=== PATIENT | female | born 1990 | race Caucasian/White ===

== ENCOUNTER 2020-10-11 02:05 | Inpatient (IN) | payer OTHER ==
[2020-10-11] MEDS: Lactated Ringers 1,000 ML IV ONE ×2 (04:30→04:51)
[2020-10-11] MEDS ORDERED: fentaNYL 100 MCG/2 ML SDV IVPUSH PRN (04:30)
[2020-10-11] MEDS ORDERED: Sodium Chloride 0.9% 10 ML Syringe FLUSH PRN (06:26)
--- NOTE | 2020-10-11 06:37 | PCM.LDHP ---
L&D History of Present Illness - General Date of Service: 10/11/20 (admited for early labor) Admit Problem/Dx: Patient Status Order with Admit Dx/Problem 10/11/20 06:26 Patient Status [ADT] Routine Admission Diagnosis/Problem Admission Diagnosis/Problem distress affecting management of mother Source of Information: Patient History Limitations: Reports: No Limitations - History of Present Illness Introduction:: Jennifer had onset of early labor at 2300 last night. She presented to the hospital about 0200. Contraction irregular and baseline heart rate 115. good variability. CE: 2-3/50/-5 per RN. no leaking of fluid. Labs: ABO AB pos HIV neg GBS neg Timing/Duration: Reports: minutes: (2-3) Location, : Reports: Abdomen, Lower back Quality: Reports: Pressure Severity: Moderate Pain Score: 7 Improves with: Reports: None Worsens with: Reports: None - Related Data Allergies/Adverse Reactions: Allergies Allergy/AdvReac Type Severity Reaction Status Date / Time No Known Allergies Allergy Verified 08/31/20 05:57 Home Medications: Home Meds Docusate Sodium [Dok] 1 cap PO DAILY PRN 08/31/20 [History] Pnv No.95/Ferrous Fum/Folic AC [ Vitamins Tablet] 1 tab PO DAILY 08/31/20 [History] Past Medical History HEENT History: Reports: Impaired Vision ACCESS REPRESENTATIVE History: Reports: , Spontaneous : 3 Para: 0 LMP (Approximate): (CALI 10/12/20) Other OB/BYN History: Endocrine/Metabolic History: Reports: Obesity/BMI 30+ - Infectious Disease History Infectious Disease History: Reports: None - Past Surgical History Cardiovascular Surgical History: Reports: None Endocrine Surgical History: Reports: None Neurological Surgical History: Reports: None Other Musculoskeletal Surgeries/Procedures:: knee surgery Social & Family History - Family History Family Medical History: No Pertinent Family History - Tobacco Use Tobacco Use Status *Q: Never Tobacco User Second Hand Smoke Exposure: No - Caffeine Use Caffeine Use: Reports: Coffee Other Caffeine Use: caffeinated water - Recreational Drug Use Recreational Drug Use: No H&P Review of Systems - Review of Systems: Review Of Systems: See Below General: Reports: No Symptoms HEENT: Reports: No Symptoms Pulmonary: Reports: No Symptoms Cardiovascular: Reports: No Symptoms Gastrointestinal: Reports: No Symptoms Genitourinary: Reports: No Symptoms Musculoskeletal: Reports: No Symptoms Skin: Reports: No Symptoms Psychiatric: Reports: No Symptoms Neurological: Reports: No Symptoms Hematologic/Lymphatic: Reports: No Symptoms Immunologic: Reports: No Symptoms L&D Exam - Exam Exam: See Below - Vital Signs Vital Signs: Last Vital Signs Temp 96.7 F L 10/11/20 02:36 Pulse 82 10/11/20 02:36 Resp 18 10/11/20 02:36 BP 139/87 10/11/20 02:36 Pulse Ox 97 10/11/20 02:36 Weight: 200 lb - OB Specific Contraction Duration (sec): 40-60 Contraction Frequency (min): 2-4 Contraction Intensity: Moderate Movement: Active Heart Tones: Present Heart Tones per Min: 105 Heart Rate (FHR) Variability: Minimal (0-5 bpm) Presentation: Vertex Estimated Weight: 7 pounds - Noriega Score Noriega Score Cervix Position: Midposition Noriega Score Consistency: Soft Noriega Score Effacement: 31-50% Noriega Score Dilation: 3-4 cm Noriega Score Infant's Station: -3 Noriega Score Total: 6 - Exam General: Alert, Oriented HEENT: PERRLA, Mucosa Moist & [place] Neck: Supple Lungs: Clear to Auscultation, Normal Respiratory Effort Cardiovascular: Regular Rate, Regular Rhythm GI/Abdominal Exam: Normal Bowel Sounds Rectal Exam: Normal Exam Genitourinary: Normal external exam, Cervical dilitation, Enlarged uterus Back Exam: Normal Inspection Extremities: No Pedal Edema, Normal Capillary Refill Skin: Warm, Dry Neurological: Cranial Nerves Intact, Reflexes Equal Bilateral Psychiatric: Alert, Normal Affect, Normal Mood - Patient Data Lab Results Last 24 hrs: Laboratory Results - last 24 hr 10/11/20 10/11/20 10/11/20 Range/Units 02:32 02:34 04:24 WBC 12.3 H (4.5-11.0) K/uL RBC 4.00 (3.30-5.50) M/uL Hgb 12.8 (12.0-15.0) g/dL Hct 36.9 (36.0-48.0) % MCV 92 (80-98) fL MCH 32 H (27-31) pg MCHC 35 (32-36) % Plt Count 236 (150-400) K/uL Neut % (Auto) 72.1 H (36-66) % Lymph % (Auto) 18.8 L (24-44) % [place] % (Auto) 8.4 H (2-6) % Eos % (Auto) 0.6 L (2-4) % Baso % (Auto) 0.1 (0-1) % Urine Color Yellow (YELLOW) Urine Appearance Cloudy A (CLEAR) Urine pH 6.0 (5.0-8.0) Ur Specific [place] 1.010 (1.008-1.030) Urine Protein Negative (NEGATIVE) mg/dL Urine Glucose (UA) Negative (NEGATIVE) mg/dL Urine Ketones Negative (NEGATIVE) mg/dL Urine Occult Blood Large H (NEGATIVE) Urine Nitrite Negative (NEGATIVE) Urine Bilirubin Negative (NEGATIVE) Urine Urobilinogen 0.2 (0.2-1.0) EU/dL Ur Leukocyte Esterase Trace H (NEGATIVE) Urine RBC 0-5 (0-5) Urine WBC 0-5 (0-5) Ur Epithelial Cells Many Amorphous Sediment Few Urine Bacteria Few Urine Mucus Occasional Urine Opiates Screen Negative (NEGATIVE) Ur Oxycodone Screen Negative (NEGATIVE) Urine Methadone Screen Negative (NEGATIVE) Ur Propoxyphene Screen Negative (NEGATIVE) Ur Barbiturates Screen Negative (NEGATIVE) Ur Tricyclics Screen Negative (NEGATIVE) Ur Phencyclidine Scrn Negative (NEGATIVE) Ur Amphetamine Screen Negative (NEGATIVE) U Methamphetamines Scrn Negative (NEGATIVE) Urine MDMA Screen Negative (NEGATIVE) U Benzodiazepines Scrn Negative (NEGATIVE) U Cocaine Metab Screen Negative (NEGATIVE) U Marijuana (THC) Screen Negative (NEGATIVE) Blood Type Gel Antibody Screen 10/11/20 Range/Units 04:24 WBC (4.5-11.0) K/uL RBC (3.30-5.50) M/uL Hgb (12.0-15.0) g/dL Hct (36.0-48.0) % MCV (80-98) fL MCH (27-31) pg MCHC (32-36) % Plt Count (150-400) K/uL Neut % (Auto) (36-66) % Lymph % (Auto) (24-44) % [place] % (Auto) (2-6) % Eos % (Auto) (2-4) % Baso % (Auto) (0-1) % Urine Color (YELLOW) Urine Appearance (CLEAR) Urine pH (5.0-8.0) Ur Specific [place] (1.008-1.030) Urine Protein (NEGATIVE) mg/dL Urine Glucose (UA) (NEGATIVE) mg/dL Urine Ketones (NEGATIVE) mg/dL Urine Occult Blood (NEGATIVE) Urine Nitrite (NEGATIVE) Urine Bilirubin (NEGATIVE) Urine Urobilinogen (0.2-1.0) EU/dL Ur Leukocyte Esterase (NEGATIVE) Urine RBC (0-5) Urine WBC (0-5) Ur Epithelial Cells Amorphous Sediment Urine Bacteria Urine Mucus Urine Opiates Screen (NEGATIVE) Ur Oxycodone Screen (NEGATIVE) Urine Methadone Screen (NEGATIVE) Ur Propoxyphene Screen (NEGATIVE) Ur Barbiturates Screen (NEGATIVE) Ur Tricyclics Screen (NEGATIVE) Ur Phencyclidine Scrn (NEGATIVE) Ur Amphetamine Screen (NEGATIVE) U Methamphetamines Scrn (NEGATIVE) Urine MDMA Screen (NEGATIVE) U Benzodiazepines Scrn (NEGATIVE) U Cocaine Metab Screen (NEGATIVE) U Marijuana (THC) Screen (NEGATIVE) Blood Type AB POSITIVE Gel Antibody Screen Negative Result Diagrams: 10/11/20 04:24 - Problem List (1) bradycardia affecting management of mother, delivered SNOMED Code(s): 00880816, 005592436, 830880889 ICD Code: O76 - ABNLT IN HEART RATE AND RHYTHM COMP LABOR AND DELIVERY Status: Acute Current Visit: Yes (2) Primary dysfunctional labor SNOMED Code(s): 128066595 ICD Code: O62.0 - PRIMARY INADEQUATE CONTRACTIONS Status: Acute Current Visit: Yes Problem List Initiated/Reviewed/Updated: Yes Orders Last 24hrs: Active Orders 24 hr Category Date Time Status Patient Status [ADT] Routine ADT 10/11/20 06:26 Ordered Antiembolic Devices [RC] .Routine Care 10/11/20 06:29 Ordered Non Stress Test [RC] Click to Edit Care 10/11/20 06:26 Ordered Peripheral IV Care [RC] . DIRECTED Care 10/11/20 06:28 Ordered Procedure Site Prep Instruct [RC] ASDIRECTED Care 10/11/20 06:26 Ordered RT Incentive Spirometry [RC] PER UNIT ROUTINE Care 10/11/20 06:26 Ordered VTE/DVT Education [RC] Click to Edit Care 10/11/20 06:29 Ordered Vital Signs [RC] PER UNIT ROUTINE Care 10/11/20 06:26 Ordered CORONAVIRUS COVID-19 RAPID [MOLEC] Stat Lab 10/11/20 06:20 Received PATIENT RETYPE [BBK] Routine Lab 10/11/20 04:24 Results TYPE AND SCREEN [BBK] Routine Lab 10/11/20 04:24 Results Sodium Chloride 0.9% [Saline Flush] Med 10/11/20 06:26 Ordered 10 ml FLUSH ASDIRECTED PRN fentaNYL [Sublimaze] Med 10/11/20 04:30 Active 100 mcg IVPUSH Q1H PRN DVT/VTE Prophylaxis Reflex [OM.PC] Routine Oth 10/11/20 06:26 Ordered Peripheral IV Insertion Adult [OM.PC] Routine Oth 10/11/20 06:26 Ordered Schedule Procedure [COMM] Per Unit Routine Oth 10/11/20 06:26 Ordered Resuscitation Status Routine Resus Stat 10/11/20 06:26 Ordered Medication Orders Fentanyl (Fentanyl 100 Mcg/2 Ml Sdv) 100 mcg IVPUSH Q1H PRN PRN Reason: Pain (severe 7-10) Last Admin: 10/11/20 04:49 Dose: 100 mcg Documented by: DEREJE Sodium Chloride (Sodium Chloride 0.9% 10 Ml Syringe) 10 ml FLUSH ASDIRECTED PRN PRN Reason: Keep Vein Open Assessment/Plan Comment:: 10/11/20 30 year old who is 39 6/7 weeks gestation. Presented in early labor Ce 2-3/50/-5 no cervical change since then. tracing shows bradycardia rate 98-105 which has drifted down from 115 on admission. Mother has had no decent into pelvis. I have significant concern about tolerance of labor. With her unengaged baby i feel the best plan is to proceed to csection. I have discussed and reviewed all this with parents and they are in agreement. Or staff notified and I spoke with the surgeon. Covid testing done.
[2020-10-11] MEDS ORDERED: Oxytocin 10 Units/1 ML SDV ONE ×2 (06:40→07:36)
[2020-10-11] MEDS ORDERED: Propofol 200 MG/20 ML SDV ONE (06:59)
[2020-10-11] MEDS ORDERED: Succinylcholine 200 MG/10 ML MDV ONE (06:59)
[2020-10-11] MEDS ORDERED: ePHEDrine 50 MG/ML SDV ONE (07:25)
[2020-10-11] MEDS ORDERED: Lactated Ringers 1,000 ML ONE (07:35)
[2020-10-11] MEDS ORDERED: fentaNYL 100 MCG/2 ML SDV ONE (08:16)
[2020-10-11] MEDS ORDERED: Benzocaine 20% Top Spray 56 GM Bottle TOP PRN (08:20)
[2020-10-11] MEDS ORDERED: Bisacodyl 10 MG Supp RECTAL PRN (08:20)
[2020-10-11] MEDS ORDERED: Naloxone 0.4 MG/ML SDV IVPUSH PRN (08:20)
[2020-10-11] MEDS ORDERED: Lanolin 100% Cream 40 GM Tube TOP PRN (08:20)
[2020-10-11] MEDS ORDERED: ePHEDrine 50 MG/ML SDV IVPUSH PRN (08:20)
[2020-10-11] MEDS ORDERED: Simethicone 80 MG Tab.Chew PO PRN (08:20)
[2020-10-11] MEDS ORDERED: Witch Hazel Medicated Pads 100/Jar TOP PRN (08:20)
[2020-10-11] MEDS ORDERED: Ondansetron 4 MG Tab.DIS PO PRN (08:20)
[2020-10-11] MEDS ORDERED: diphenhydrAMINE 50 MG/ML SDV IVPUSH PRN (08:20)
[2020-10-11] MEDS ORDERED: Morphine 2 MG/ML SYRINGE IVPUSH PRN ×2 (08:24→09:45)
[2020-10-11] MEDS: Acetaminophen/HYDROcodone 325-5 MG Tab PO PRN ×4 (09:17→21:31)
[2020-10-11] MEDS: Ketorolac 30 MG/ML SDV IVPUSH PRN ×3 (09:53→22:07)
[2020-10-11] MEDS: Ibuprofen 800 MG Tab PO PRN (09:55)
[2020-10-11] MEDS: Prenatal Multivitamin with Calcium/Folic Acid/Iron Tab PO SCH (11:55)
--- NOTE | 2020-10-12 00:16 | OR ---
DATE OF PROCEDURE: 10/11/2020 SURGEON: Kevin Lala MD PROCEDURE: section with aftercare. COMPLICATIONS: None. HEAD CONTROL CLERK: Mariaa Chandler CNM PREOPERATIVE DIAGNOSIS: Bradycardia in baby requiring urgent section. POSTOPERATIVE DIAGNOSIS: Bradycardia in baby requiring urgent section. RISKS: Risks, benefits, alternatives, and limitations including, but not limited to, infection, bleeding, injury to bowel, bladder, other structures not listed here. We also discussed chronic wounds, chronic pain, hernia formation, and other risks. PROCEDURE IN DETAIL: The patient is placed in supine position. This would be performed using a classic Pfannenstiel-type incision. This was performed using a 15 blade and carried down with electrocautery to and through the fascia. The fascia was then elevated using Ottoniel clamps and electrocautery. The linea alba was then opened sharply with Metzenbaum scissors. A muscle sparing/spreading technique was performed. The bladder was identified, deflected inferiorly. This bladder will be protected throughout the remainder of the procedure using a bladder blade. The uterus was then opened bluntly using a Teresa clamp. The uterus was then enlarged. The baby was delivered with mild difficulty. The cord was clamped, subsequently cut. The placenta was densely adhered to the uterine wall, was able to be freed with blunt dissection. Uterus inspected for perforation and injury, none were noted. This was then packed with laps. Hemostasis was achieved. Pitocin was given. The laps were removed. The counts were correct. The uterus was then closed with #1 Vicryl running suture in 3 layers. The abdomen was irrigated. This was inspected for clots. The rectus muscles were reapproximated. The fascia was closed with #1 Vicryl in a running line x2. The subcutaneous tissues were closed with 3-0 Vicryl. Skin was closed with 4-0 Vicryl and Dermabond. The patient tolerated the procedure well. Kevin Lala MD /[id number]
[2020-10-12] MEDS: Acetaminophen/HYDROcodone 325-5 MG Tab PO PRN ×4 (04:14→19:28)
[2020-10-12] MEDS: Ibuprofen 800 MG Tab PO PRN ×2 (05:57→16:57)
[2020-10-12] MEDS ORDERED: Docusate Sodium 100 MG Cap PO SCH (09:30)
[2020-10-12] MEDS: Prenatal Multivitamin with Calcium/Folic Acid/Iron Tab PO SCH (09:34)
--- NOTE | 2020-10-12 11:16 | PN ---
DATE OF SERVICE: 10/12/2020 SUBJECTIVE: The patient is doing very well. Pain is well controlled today. No nausea, vomiting, shortness of breath, or chest pain. OBJECTIVE: VITAL SIGNS: Stable. She is afebrile per nursing report. CARDIOVASCULAR: Regular rhythm and rate. RESPIRATORY: Lungs clear to auscultation bilaterally. Incision healing well. ASSESSMENT: Status post section. PLAN: Continue to advance diet. Work on pain medication and ambulation. Kevin Lala MD /[id number]
[2020-10-13] MEDS: Ibuprofen 800 MG Tab PO PRN ×2 (00:25→13:52)
--- NOTE | 2020-10-13 08:13 | PN ---
DATE OF SERVICE: 10/13/2020 SUBJECTIVE: The patient is doing well. Pain is well controlled. No nausea. No shortness of breath or chest pain. OBJECTIVE: VITAL SIGNS: Stable. CARDIOVASCULAR: Regular rhythm and rate. RESPIRATORY: Lungs are clear to auscultation bilaterally. SKIN: The incision is healing well. ASSESSMENT: Status post section. PLAN: Continue to advance diet. Anticipate discharge in the next 24 hours. Please see supervisor production managing notes for further details. Kevin Lala MD /[id number]
[2020-10-13] MEDS: Acetaminophen/HYDROcodone 325-5 MG Tab PO PRN ×4 (08:49→23:42)
[2020-10-13] MEDS: Prenatal Multivitamin with Calcium/Folic Acid/Iron Tab PO SCH (10:11)
[2020-10-13] MEDS: Docusate Sodium 100 MG Cap PO PRN (19:26)
[2020-10-14] MEDS: Acetaminophen/HYDROcodone 325-5 MG Tab PO PRN ×3 (04:11→12:35)
[2020-10-14] MEDS: Ibuprofen 800 MG Tab PO PRN (04:51)
[2020-10-14] MEDS: Prenatal Multivitamin with Calcium/Folic Acid/Iron Tab PO SCH (09:07)
[2020-10-14] MEDS: Docusate Sodium 100 MG Cap PO PRN (09:07)
--- NOTE | 2020-10-14 09:56 | PCM.PNPP ---
- General Info Date of Service: 10/14/20 Functional Status: Reports: Pain Controlled - Review of Systems General: Reports: No Symptoms HEENT: Reports: No Symptoms Pulmonary: Reports: No Symptoms Cardiovascular: Reports: No Symptoms Gastrointestinal: Reports: No Symptoms Genitourinary: Reports: No Symptoms Musculoskeletal: Reports: No Symptoms Skin: Reports: No Symptoms Neurological: Reports: No Symptoms Psychiatric: Reports: No Symptoms - General Info Date of Service: 10/14/20 - Patient Data Vital Signs - Most Recent: Last Vital Signs Temp 36.8 C 10/14/20 07:08 Pulse 89 10/14/20 07:08 Resp 16 10/14/20 07:08 BP 103/79 10/14/20 07:08 Pulse Ox 100 10/14/20 07:08 Weight - Most Recent: 90.718 kg Med Orders - Current: Current Medications Hydrocodone Bitart/Acetaminophen (Acetaminophen/Hydrocodone 325-5 Mg Tab) 1 tab PO Q4H PRN PRN Reason: Pain (moderate 4-6) Last Admin: 10/14/20 08:31 Dose: 1 tab Documented by: Benzocaine (Benzocaine 20% Top [place] 56 Gm Bottle) 0 gm TOP Q4H PRN PRN Reason: PERINEAL Pain Bisacodyl (Bisacodyl 10 Mg Supp) 10 mg RECTAL BID PRN PRN Reason: Constipation Diphenhydramine HCl (Diphenhydramine 50 Mg/Ml Sdv) 25 mg IVPUSH Q6H PRN PRN Reason: Itching or Nausea Docusate Sodium (Docusate Sodium 100 Mg Cap) 100 mg PO BID PRN PRN Reason: Constipation Last Admin: 10/14/20 09:07 Dose: 100 mg Documented by: Emollient Ointment (Lanolin 100% Cream 40 Gm Tube) 40 gm TOP ASDIRECTED PRN PRN Reason: SORE NIPPLES Last Admin: 10/11/20 10:31 Dose: 1 applic Documented by: Ephedrine Sulfate (Ephedrine 50 Mg/Ml Sdv) 5 mg IVPUSH ASDIRECTED PRN PRN Reason: Other Ibuprofen (Ibuprofen 800 Mg Tab) 800 mg PO Q8H PRN PRN Reason: mild pain or fever Last Admin: 10/14/20 04:51 Dose: 800 mg Documented by: Morphine Sulfate (Morphine 2 Mg/Ml Syringe) 2 - 4 mg IVPUSH Q2H PRN PRN Reason: Pain (severe 7-10) Last Admin: 10/11/20 11:22 Dose: 2 mg Documented by: Naloxone HCl (Naloxone 0.4 Mg/Ml Sdv) 0.1 mg IVPUSH ASDIRECTED PRN PRN Reason: Respiratory Depression Ondansetron HCl (Ondansetron 4 Mg Tab.Dis) 8 mg PO Q6H PRN PRN Reason: Nausea/Vomiting Last Admin: 10/11/20 09:18 Dose: 8 mg Documented by: Delbert Multivit/[place]/Iron/Folic Ac ( Multivitamin With Calcium/Folic Acid/Iron Tab) 1 each PO DAILY [facility] Last Admin: 10/14/20 09:07 Dose: 1 each Documented by: Simethicone (Simethicone 80 Mg Tab.Chew) 80 mg PO Q4H PRN PRN Reason: Gas Sodium Chloride (Sodium Chloride 0.9% 10 Ml Syringe) 10 ml FLUSH ASDIRECTED PRN PRN Reason: Keep Vein Open Waylon Hernández ([place]itch Betty Medicated Pads 100/Jar) 1 pad TOP ASDIRECTED PRN PRN Reason: PERINEAL PAIN Discontinued Medications Docusate Sodium (Docusate Sodium 100 Mg Cap) 100 mg PO BID [facility] Last Admin: 10/12/20 09:33 Dose: 100 mg Documented by: Ephedrine Sulfate (Ephedrine 50 Mg/Ml Sdv) Confirm Administered Dose 50 mg .ROUTE .STK-MED ONE Stop: 10/11/20 07:26 Fentanyl (Fentanyl 100 Mcg/2 Ml Sdv) 100 mcg IVPUSH Q1H PRN PRN Reason: Pain (severe 7-10) Last Admin: 10/11/20 04:49 Dose: 100 mcg Documented by: Fentanyl (Fentanyl 100 Mcg/2 Ml Sdv) Confirm Administered Dose 100 mcg .ROUTE .STK-MED ONE Stop: 10/11/20 08:17 Lactated Ringer's (Ringers, Lactated) 1,000 mls @ 999 mls/hr IV BOLUS ONE Stop: 10/11/20 05:30 Last Admin: 10/11/20 04:51 Dose: Not Given Documented by: Lactated Ringer's (Ringers, Lactated) Confirm Administered Dose 1,000 mls @ as directed .ROUTE .STK-MED ONE Stop: 10/11/20 07:36 Ketorolac Tromethamine (Ketorolac 30 Mg/Ml Sdv) 15 - 30 mg IVPUSH Q6H PRN PRN Reason: Pain Stop: 10/16/20 09:44 Last Admin: 10/11/20 22:07 Dose: 15 mg Documented by: Morphine Sulfate (Morphine 2 Mg/Ml Syringe) 2 mg IVPUSH Q2H PRN PRN Reason: Pain Last Admin: 10/11/20 09:13 Dose: 2 mg Documented by: Oxytocin (Oxytocin 10 Units/1 Ml Sdv) Confirm Administered Dose 10 unit .ROUTE .STK-MED ONE Stop: 10/11/20 06:41 Last Admin: 10/11/20 07:51 Dose: 10 unit Documented by: Oxytocin (Oxytocin 10 Units/1 Ml Sdv) Confirm Administered Dose 20 unit .ROUTE .STK-MED ONE Stop: 10/11/20 07:37 Propofol (Propofol 200 Mg/20 Ml Sdv) Confirm Administered Dose 200 mg .ROUTE .STK-MED ONE Stop: 10/11/20 07:00 Succinylcholine Chloride (Succinylcholine 200 Mg/10 Ml Mdv) Confirm Administered Dose 200 mg .ROUTE .STK-MED ONE Stop: 10/11/20 07:00 - Infant Interaction Disposition, : [place] in Room with Family Infant Interaction: Holding Infant Feeding: Breastfed ; Nursed Well, Encouraged to Breastfeed Support Person: - Recovery Exam Fundal Tone: Firm Fundal Level: At Umbilicus Fundal Placement: Midline Lochia Amount: Small Lochia Color: Rubra/Red Perineum Description: Intact, Minimal Bruising/Swelling Episiotomy/Laceration: None Bladder Status: Voiding Urinary Elimination: Voided - Exam General: Alert, Oriented HEENT: Pupils Equal, Pupils Reactive, Mucous Membr. Moist/[place] Neck: Supple Lungs: Clear to Auscultation, Normal Respiratory Effort Cardiovascular: Regular Rate, Regular Rhythm GI/Abdominal Exam: Normal Bowel Sounds, Soft, Non-Tender, Pelvis Stable Extremities: Normal Inspection, Normal Range of Motion, Non-Tender, Pedal Edema Skin: Warm, Dry Wound/Incisions: Healing Well Neurological: No New Focal Deficit Psy/Mental Status: Alert, Normal Affect, Normal Mood - Problem List & Annotations (1) bradycardia affecting management of mother, delivered SNOMED Code(s): 90971231, 408892743, 395806322 Code(s): O76 - ABNLT IN HEART RATE AND RHYTHM COMP LABOR AND DELIVERY Status: Acute Current Visit: Yes (2) Primary dysfunctional labor SNOMED Code(s): 144613479 Code(s): O62.0 - PRIMARY INADEQUATE CONTRACTIONS Status: Acute Current Visit: Yes (3) Status post SNOMED Code(s): 236865606, 781695999 Code(s): Z98.891 - HISTORY OF UTERINE SCAR FROM PREVIOUS SURGERY Status: Acute Current Visit: Yes - Problem List Review Problem List Initiated/Reviewed/Updated: Yes - Assessment Assessment:: 10/14/20 PP day 3, doing well Pain controlled Nursing better, going fair, pumping as well and milk is coming in FF and bleeding light - Plan Plan:: 10/11/20 30 year old who is 39 6/7 weeks gestation. Presented in early labor Ce 2-3/50/-5 no cervical change since then. tracing shows bradycardia rate 98-105 which has drifted down from 115 on admission. Mother has had no decent into pelvis. I have significant concern about tolerance of labor. With her unengaged baby i feel the best plan is to proceed to csection. I have discussed and reviewed all this with parents and they are in agreement. Or staff notified and I spoke with the surgeon. Covid testing done. 10/14/20 Discharge home today with and baby Rx done by surgery for pain medications Follow up 6 weeks
--- NOTE | 2020-10-15 10:56 | DISCH ---
DISCHARGE DIAGNOSIS: Status post section. SUMMARY OF HOSPITAL COURSE: A pleasant 30-year-old female who underwent uneventful section. Her hemoglobin remained stable. Her pain was well controlled prior to discharge. No nausea, vomiting, shortness of breath, or chest pain. FOLLOWUP: With Surgery in 7 to 14 days. ACTIVITY: No lifting greater 30 pounds x30 days. /[id number]
--- NOTE | 2020-10-15 12:53 | PN ---
DATE OF SERVICE: 10/14/2020 SUBJECTIVE: The patient is doing well. Pain is well controlled. No nausea, vomiting, shortness of breath, or chest pain. OBJECTIVE: VITAL SIGNS: Stable. CARDIOVASCULAR: Regular rhythm and rate. RESPIRATORY: Lungs are clear to auscultation bilaterally. SKIN: The incision is healing well. ASSESSMENT: Status post section. PLAN: The patient will most likely be discharged today after discussion with lock and dam repairer. Please see discharge summary for further details. Kevin Lala MD /[id number]
== END 2020-10-14 15:44 | disposition home or self-care (01) | DRG 788 ==
LOC: JP.OBCHECK 02:05 → JP.NPLAB 02:05 → JP.OB 03:15 → OBSVTOIN 07:40 → JP.OB 07:40 → JP.MS 07:52
PROVIDERS: ADMIT Nurse Practitioner Family; ATTEND Nurse Practitioner Family
PROC: 10D00Z1 Extraction of Products of Conception, Low, Open Approach (ICD-10-PCS; principal; 2020-10-11)
DX: O76 Abnormality in fetal heart rate and rhythm complicating labor and delivery (principal); O99.214 Obesity complicating childbirth; O62.0 Primary inadequate contractions; Z20.822 Contact with and (suspected) exposure to COVID-19; Z37.0 Single live birth; Z3A.39 39 weeks gestation of pregnancy
CPT/HCPCS: 36415; 80048; 80305-QW; 81001; 85025; 86850; 86900; 86901; 88307; 99211; A9270-GY; J0330; J1885; J2270; J2590; J2704; J3010; J7120; U0002